=== PATIENT | female | born 1995 | race African-American/Black ===

== ENCOUNTER 2023-10-12 13:43 | Emergency (ER) | payer MEDICAID, SELFPAY ==
[2023-10-12 14:03] VITALS: BP 111/57; PULSE 90; RESP 19; TEMP 36.6; O2SAT 98; BMI 23.8
--- NOTE | 2023-10-12 15:04 | ED_ITS ---
HPI - General Adult General Chief complaint: Abdominal Pain Stated complaint: 8 mos having abd pain Time Seen by Provider: 10/12/23 14:11 Source: patient Mode of arrival: ambulatory Limitations: no limitations History of Present Illness HPI narrative: 28-year-old female A1 8 months presents to the ED for right sided lower abdominal pain, back pain, and left leg pain for the past two days. Pa karleymorgan states two days ago she had one episode of VAGINAL clear mucus discharge two days ago. patient states no vaginal bleeding, and or discharge today. Related Data Allergies Allergy/AdvReac Type Severity Reaction Status Date / Time No Known Allergies Allergy Verified 10/12/23 14:03 Review of Systems Review of Systems: Right sided lowe abdominal pain and with one episode of mucus clear vaginal discharge Yes all other systems are reviewed and are negative PMFSH Social History Social History Smoked in Last 30 Days: No Use of substances other than those prescribed or required for medical reasons: No Advance Directives: No Advance Directives Information Provided: No Patient : Yes Physical Exam ED Vital Signs: Vital Signs - 24 hr 10/12/23 14:03 Temperature 98 F Pulse Rate 90 Respiratory Rate 19 Blood Pressure 111/57 L Pulse Oximetry 98 Oxygen Delivery Method Room Air BMI result Body Mass Index 23.8 Const Orientation/consciousness: oriented to person, oriented to place, oriented to time and patient oriented x3 HENMT Head: Yes normal to inspection, Yes No palpable skull fracture present, Yes normocephalic and Yes atraumatic Eyes General: appearance normal, both eyes and all related structures Neck Neck: Yes normal visual inspection, Yes full ROM, Yes no lymphadenopathy, Yes no meningeal signs, Yes trachea midline, Yes supple, No anterior neck swelling and No tender Chest Chest palpation & inspection: normal inspection of the chest and normal palpation of entire chest wall Resp Effort & Inspection: normal respiratory effort and able to speak in complete sentences Auscultation: clear to auscultation bilaterally Cardio Jugular venous distension: no JVD Heart sounds: S1 normal heart sound present and S2 normal heart sound present GI Inspection: Yes normal to inspection and No abdominal wall ecchymosis Palpation (GI): Soft to palpation, not firm, nontender, no guarding and not rigid Other: negative for vaginal discharge or lesions. Cervix 1cm thick General: Yes no CVA tenderness Back/Spine/Pelvis Back: no CVA tenderness and No back tenderness Skin General skin exam: no rashes or lesions noted, elasticity normal and turgor normal Neuro General: oriented to person, oriented to place, oriented to time, patient oriented x3, gait normal, tone normal, moves all extremities, Normal light touch and pain sensation, no meningeal signs, no focal motor deficits and CN's II-XI intact bilaterally Extrem Other: Bilateral lower extremities negative for swelling, pitting edema,ecchymosis or calf pain. MOTOR, NEURO, AND VASCULAR EXAM IS INTACT. General: Yes normal to inspection and Yes full ROM Psych Appearance: grossly normal, well kempt and not disheveled Course Course Course Narrative: RME: 28 yold female 8 months pregnat presents to the ED for right sided lower abdominal pain and back pain. patient states one episdoe of mucus clear discharge that occured yesterday. No vaginal bleeding. 3:46 pm: [facility] Case discussed with her and she states she will Discuus with her Attendant and call us back. 3:55pm: Case accpeted by Dr. Weathers of OBGYN and to go to for monitoring. Medical Decision Making Medical Decision Making MDM Narrative: 28-year-old female presents to the ED for right-sided lower abdominal pain radiating to the back and left leg for the past 2 days. Also 2 days ago had 1 episode of clear mucus vaginal discharge. Patient denies any nausea, vomiting, vaginal bleeding, or present vaginal discharge. Patient not in any distress. Patient has no OBGYN presently in [facility]. Patient used to follow at [facility], but now lives in the area and missed her 8 months OBGYN appointment in [place]. Patient estimated due date December 09. Case discussed with OBGYN resident who discussed case with Dr. Weathers. Dr. Weathers accepted the case recommend patient be transferred to [facility] for evaluation and monitoring. heart rate 148. Differential Diagnosis Differential Diagnoses: The differential diagnosis associated with the presentation includes (Abdominal pain, labor? ) Admission/Observation Consideration of admission/observation: Escalation of care including admission/observation considered Consult Healthcare Provider Management of the patient was discussed with: Hitcher (Dr. Sidney MCCLAIN and Dr. Sarahy DIAZ [facility]) Lab Data Labs: Lab Results 10/12/23 Range/Units 15:28 COVID-19 (EVELYN) Negative (Negative) COVID-19 Clin Com See Note Independent Historian Clinical information obtained from an independent historian. History obtained from or confirmed by: Other Discharge Plan Discharge Clinical Impression: , Abdominal pain Patient Disposition: [facility] Transfer Details: TO [facility] Interventions: Acute Care Transfer Worksheet (ED) Last Done: 10/12/23 17:51 Discharge Date/Time: 10/12/23 17:53
[2023-10-12 15:47] LABS: COVID-19 Test Negative (Negative); IDNOW Serial# 152EDE1D
--- NOTE | 2023-10-12 16:19 | PC.NURSE ---
HEPLOCK #20 PLACED TO R AC. PT TOLERATED WELL.
== END 2023-10-12 17:53 | disposition short-term general hospital (02) ==
PROVIDERS: Physician Assistant; Emergency Provider Emergency Medicine
DX: O26.893 Other specified pregnancy related conditions, third trimester (principal); R10.31 Right lower quadrant pain; O99.891 Other specified diseases and conditions complicating pregnancy; M54.9 Dorsalgia, unspecified; M79.605 Pain in left leg; Z3A.00 Weeks of gestation of pregnancy not specified; Z11.52 Encounter for screening for COVID-19
CPT/HCPCS: 87635; 99285

== ENCOUNTER 2024-12-10 17:35 | Emergency (ER) | payer OTHER, SELFPAY ==
--- NOTE | ~2024-12-10 | US_ITS ---
CLINICAL HISTORY: Lower back pain, quant 105,816 LMP 10 25 2024 ,6w4d --- Additional Notes or Special Instructions: R O ectopic Exam: 1st trimester transabdominal obstetrical ultrasound. Comparison: None. Findings: Patient's last menstrual period was October 25, 2024. This gives a gestational age of 6 weeks and 4 days. Transabdominal study only was performed. Urinary bladder is minimally distended. Single intrauterine gestation is identified. Gestational sac, yolk sac, pole are present. [place]-rump length measurement gives an estimated age by ultrasound of 6 weeks and 3 days +/-1 week. cardiac activity is confirmed at 114 beats per minute. No subchorionic hemorrhage. Right ovary measures 2.0 x 1.8 x 2.3 cm in size. Right ovary is unremarkable. Left ovary measures 3.6 x 2.6 x 2.1 cm in size. Presumed corpus luteal cyst within the left ovary measures 2.2 x 2.2 x 1.8 cm in size. No free pelvic fluid. Impression: 1. Single intrauterine gestation with age by ultrasound of 6 weeks and 3 days +/-1 week with confirmed cardiac activity. 2. Likely corpus luteal cyst within the left ovary. Continued attention on follow up obstetrical ultrasound suggested. This document has been electronically signed by: Matthew Saleem MD on 12/10/2024 21:38:36
[2024-12-10 17:45] VITALS: BP 98/49; PULSE 97; RESP 12; TEMP 36.6; O2SAT 99; BMI 22.0
--- NOTE | 2024-12-10 17:46 | ED.GENADULT ---
HPI - General Adult General Chief complaint: Back Pain/Injury Stated complaint: back pain Time Seen by Provider: 12/10/24 19:12 Source: patient and other () Mode of arrival: ambulatory Limitations: language barrier (N[place]ien Creole speaking only) History of Present Illness ED Provider: Dr. Jose Manuel Jenkins HPI narrative: 29-year-old female who presents emergency department for evaluation of lower back pain, dysuria/burning urination, vaginal pruritus and missing her last menstrual period. Patient's last menstrual period was 10/25/2024. Quantitative beta-hCG is positive today at 105,081 which makes the patient [id number] has a 12 month old daughter and she had 1 miscarriage. The patient states that since giving in November of 2023 she has had chronic lower back pain however this pain in his gotten worse since the beginning of this month. She states the pain is a constant, for pain which is worse with movement. She denied abdominal pain. She denied nausea or vomiting. She states that she does have an itchiness in her vaginal area but no discharge and no vaginal bleeding. The patient states that her blood type is AB positive. She denied fever, chills, chest pain, shortness of breath, nausea, vomiting or diarrhea. Related Data Previous Rx's ?Medication ?Instructions ?Recorded acetaminophen 500 mg tablet 1,000 mg (2 x 500 mg) PO Q6H PRN 12/10/24 (Tylenol Extra Strength) fever or pain #20 tabs vits no.126-ferrous fum 1 tab PO DAILY 90 days #90 tabs 12/10/24 28 mg iron-folic acid 800 mcg tablet (Classic ) Allergies Allergy/AdvReac Type Severity Reaction Status Date / Time No Known Allergies Allergy Verified 12/10/24 17:48 Review of Systems Review of Systems: Yes all other systems are reviewed and are negative PMFSH Social History Social History Unable to assess alcohol history related to: Unknown Use of substances other than those prescribed or required for medical reasons: Unknown Advance Directives: No Advance Directives Information Provided: No Do you have a plan to hurt others: No Plan Patient : Yes Physical Exam ED Vital Signs: Vital Signs - 24 hr 12/10/24 17:45 12/10/24 19:38 12/10/24 22:28 Temperature 97.9 F 98.8 F 98.2 F Pulse Rate 97 100 86 Respiratory Rate 12 16 18 Blood Pressure 98/49 L 127/69 95/61 Pulse Oximetry 99 100 100 Oxygen Delivery Method Room Air Room Air Room Air 12/10/24 22:58 Temperature 98.2 F Pulse Rate 86 Respiratory Rate 18 Blood Pressure 95/61 Pulse Oximetry 100 Oxygen Delivery Method Room Air BMI result Body Mass Index 22.0 Vital signs were normal Exam: General: Awake, alert in no distress Head: Normocephalic, atraumatic EENT: PERRL, Lids normal, sclera normal, conjunctiva normal, nose normal , ears normal, throat without erythema or exudates Neck: Supple, no adenopathy Lung: breath sounds symmetric, no wheezing, rales or rhonchi Chest: symmetric movement, nontender Heart: regular rate and rhythm, normal S1, S2 no murmurs or rubs Abdomen: soft, non-tender, nondistended, normal bowel sounds Back: no vertebral tenderness, mild paraspinal muscle tenderness lumbar sacral area right greater than left, no spasm, no rashes or lesions noted in his area Extremities: no deformities, moves all extremities symmetrically Neuro: Awake, alert, oriented, normal speech, cranial nerves intact, moves all extremities symmetrically Psych: Pleasant, cooperative Course Course Course Narrative: RME performed by Maria Luz Edwards PA-C. Patient is a 29 year old assigned female at presenting to the emergency department with low back pain and pain with urination. Patient states that she has been having pain with urination, missed her period, and is having low back pain. Patient states that she is concerned her low back pain is from her epidural during delivery. Detailed physical exam and review of systems are deferred to the mental health clinician. Labs ordered. Patient placed back in the waiting room pending room availability and results. Medications Administered Discontinued Medications Generic Name Dose Route Start Last Admin Trade Name Freq PRN Reason Stop Dose Admin Acetaminophen 975 mg 12/10/24 19:38 12/10/24 19:44 Acetaminophen 325 Mg Tablet PO 12/10/24 19:39 975 mg ONCE STA Administration Medical Decision Making Medical Decision Making [facility] Narrative: 29-year-old female who presents emergency department for evaluation of lower back pain, dysuria/burning urination, vaginal pruritus and missing her last menstrual period. Patient's last menstrual period was 10/25/2024. Quantitative beta-hCG is positive today in the ED at 105,081 which makes the patient [id number] has a 12 month old daughter and she had 1 miscarriage. The patient states that since giving in November of 2023, she has had chronic lower back pain however this pain in his gotten worse since the beginning of this month. She states the pain is a constant, pressure-like pain which is worse with movement. She denied abdominal pain. She denied nausea or vomiting. She states that she does have an itchiness in her vaginal area but no discharge and no vaginal bleeding. The patient states that her blood type is AB positive. She denied fever, chills, chest pain, shortness of breath, nausea, vomiting or diarrhea. Vital signs were normal. Physical examination revealed no abdominal tenderness but she does have tenderness palpation of the, right greater than left. Differential diagnosis: ?Includes but is not limited to ectopic , intrauterine , urinary tract infection, pyelonephritis, gonorrhea, chlamydia, anemia, electrolyte abnormalities Course: 17:49 My interpretation patient's laboratory evaluation is as follows: Normocytic anemia with an H&H of 11.2 and 31.6. Platelet count was normal 202,000. LFTs were normal. Quantitative beta-hCG was elevated 105,816. COVID-19, influenza and RSV tests were negative. Urinalysis is pending. Urine GC and chlamydia tests are pending. Based on the patient's last menstrual period she is 6 weeks and 4 days . Given her lower back pain I am concerned that she may have an ectopic therefore I ordered ultrasound evaluation. The patient was given Tylenol 975 mg orally for her pain. 22:30 Ultrasound revealed a single intrauterine which correlates with the patient's last menstrual period, gestational age is estimated at 6 weeks and 3 days on ultrasound. PAULINA is 08/01/2025. Patient states that her pain resolved after getting the oral Tylenol. Patient states she gets her OBGYN care at [facility]. The patient was prescribed vitamins and extra-strength Tylenol as needed for her pain. She was given printed instructions on and advised to contact [facility] to establish care for this . Admission/Observation Consideration of admission/observation: Escalation of care including admission/observation considered Lab Data MDM Lab Attestation statement: I reviewed the patient's lab results. 12/10/24 18:20 12/10/24 18:20 Labs: Lab Results 12/10/24 12/10/24 Range/Units 18:20 19:46 WBC 8.3 (4.8-10.8) X10*3/uL RBC 3.48 L (4.20-5.50) X10*6/uL Hgb 11.2 L (12.0-16.0) g/dl Hct 31.6 L (37.0-47.0) % MCV 90.8 (80.0-98.0) fL MCH 32.2 (27.0-33.0) pg MCHC 35.4 H (31.0-35.0) g/dl RDW 11.4 (11.0-16.0) % Plt Count 202 (160-400) X10*3/uL MPV 10.3 (9.4-12.3) fL Immature Gran % (Auto) 0.4 (0.0-0.4) % Neut % (Auto) 59.5 (45-73) % Lymph % (Auto) 32.8 (20-40) % [place] % (Auto) 6.0 (2-11) % Eos % (Auto) 0.8 (0-4) % Baso % (Auto) 0.5 (0-2) % Lymph # (Auto) 2.7 (1.2-4.9) X10*3/uL [place] # (Auto) 0.5 (0.1-1.2) X10*3/uL Eos # (Auto) 0.1 (0.0-0.4) X10*3/uL Baso # (Auto) 0.0 (0.0-0.2) X10*3/uL Abs Immat Gran (auto) 0.03 (0.00-0.03) X10*3/uL Absolute Neuts (auto) 5.0 (2.0-8.3) x10*3/uL Absolute Nucleated RBC 0.000 (0.0-0.012) X10*3/uL Nucleated RBC % (auto) 0.0 (0.0-0.2) /100WBC PT 13.9 H (10.9-12.4) SEC INR 1.2 H (0.9-1.1) Sodium 139 (135-145) mmol/L Potassium 4.2 (3.3-5.1) mmol/L Chloride 111 H (96-108) mmol/L Carbon Dioxide 22 (22-29) mmol/L Anion Gap 10 L (12-20) BUN 7 L (9-16) mg/dL Creatinine 0.67 (0.5-1.4) mg/dL Estim Creat Clear Calc 99.7 Estimated GFR > 60 Random Glucose 102 (60-115) mg/dL Calcium 8.8 (8.4-10.2) mg/dL Magnesium 2.0 (1.6-2.6) mg/dL Total Bilirubin 0.7 (0.0-1.0) mg/dL AST 21 (5-31) U/L ALT 22 (0-31) U/L Alkaline Phosphatase 32 L (39-117) U/L Total Protein 6.6 (6.5-8.0) g/dL Albumin 3.9 (3.5-5.0) g/dL Beta HCG, Quant [id number] mIU/mL Urine Color Yellow Urine Appearance Clear Urine pH 6.5 (5.0-9.0) Ur Specific [place] 1.025 (1.005-1.025) Urine Protein Negative (Neg-Trace) mg/dL Urine Glucose (UA) Negative (Negative) mg/dL Urine Ketones Trace (Negative) mg/dL Urine Blood Negative (Negative) Urine Nitrite Negative (Negative) Ur Leukocyte Esterase Trace H (Negative) Urine RBC 0-2 (0-2) /HPF Urine WBC 0-5 (0-5) /HPF Ur Squamous Epith Cells 6-10 (0-2) /HPF Urine Bacteria Trace (None Seen) Hyaline Casts 0-2 (0-2) /LPF Influenza Type A (PCR) NEGATIVE (Negative) Influenza Type B (PCR) NEGATIVE (Negative) RSV RNA Qual (PCR) NEGATIVE (Negative) SARS-CoV-2 RNA (RT-PCR) NEGATIVE (Negative) Radiology Impression Discussion of test interpretation with radiology: I have reviewed the radiologist's reading. Radiologist Impression: Exam: 1st trimester transabdominal obstetrical ultrasound. Comparison: None. Findings: Patient's last menstrual period was October 25, 2024. This gives a gestational age of 6 weeks and 4 days. Transabdominal study only was performed. Urinary bladder is minimally distended. Single intrauterine gestation is identified. Gestational sac, yolk sac, pole are present. [place]-rump length measurement gives an estimated age by ultrasound of 6 weeks and 3 days +/-1 week. cardiac activity is confirmed at 114 beats per minute. No subchorionic hemorrhage. Right ovary measures 2.0 x 1.8 x 2.3 cm in size. Right ovary is unremarkable. Left ovary measures 3.6 x 2.6 x 2.1 cm in size. Presumed corpus luteal cyst within the left ovary measures 2.2 x 2.2 x 1.8 cm in size. No free pelvic fluid. Impression: 1. Single intrauterine gestation with age by ultrasound of 6 weeks and 3 days +/-1 week with confirmed cardiac activity. 2. Likely corpus luteal cyst within the left ovary. Continued attention on follow up obstetrical ultrasound suggested. This document has been electronically signed by: Matthew Saleem MD on 12/10/2024 21:38:36 Independent Historian Clinical information obtained from an independent historian. History obtained from or confirmed by: Other (Spouse) Prescription Management I considered prescription management with: Other ( vitamins, extra-strength Tylenol) Discharge Plan Discharge Clinical Impression: First trimester , Intrauterine , Back pain Patient Disposition: Home, Self-Care Instructions: (ED) Additional Instructions: Your test was positive Your ultrasound revealed 1 baby (single intrauterine ). Based on your dates and on the ultrasound, you are 6 weeks and 3 days . Estimated delivery date is 08/01/2025. Take the vitamins as prescribed You can take extra-strength Tylenol 500 mg pills, 2 pills every 6 hours as needed for pain Please return to the emergency department if your symptoms get worse or if you develop any symptoms that are concerning to you. You need to follow-up with your OBGYN doctor at [facility] to get care. Please return to the emergency department if your symptoms get worse or if you develop any symptoms that are concerning to you. Prescriptions: New Classic 28 mg iron- 800 mcg tablet 1 tab PO DAILY 90 Days Qty: 90 3RF acetaminophen [Tylenol Extra Strength] 500 mg tablet 1,000 mg PO Q6H PRN (Reason: fever or pain) Qty: 20 0RF Interventions: ED Discharge Assessment Last Done: 12/10/24 22:58 Discharge Date/Time: 12/10/24 22:58 Print Language: [place]
[2024-12-10 18:25] LABS: MANUAL DIFF FLAG NO
[2024-12-10 18:26] LABS: Basophils Percent Auto 0.5 % (0-2); Eosinophils Absolute Auto 0.1 X10*3/uL (0.0-0.4); Eosinophils Percent Auto 0.8 % (0-4); Hematocrit 31.6 % (37.0-47.0); Hemoglobin 11.2 g/dl (12.0-16.0); Imm Gran Abs Auto 0.03 X10*3/uL (0.00-0.03); Imm Gran Pct Auto 0.4 % (0.0-0.4); Lymphocytes Absolute Auto 2.7 X10*3/uL (1.2-4.9); Lymphocytes Percent Auto 32.8 % (20-40); Mean Corpuscular HGB Conc 35.4 g/dl (31.0-35.0); Mean Corpuscular Hemoglobin 32.2 pg (27.0-33.0); Mean Corpuscular Volume 90.8 fL (80.0-98.0); Mean Platelet Volume 10.3 fL (9.4-12.3); Monocytes Absolute Auto 0.5 X10*3/uL (0.1-1.2); Neutrophils Percent Auto 59.5 % (45-73); Platelet Count 202 X10*3/uL (160-400); Red Blood Count 3.48 X10*6/uL (4.20-5.50); Red Cell Distribution Width 11.4 % (11.0-16.0); White Blood Count 8.3 X10*3/uL (4.8-10.8)
[2024-12-10 18:32] LABS: INTERNATIONAL NORM RATIO 1.2 (0.9-1.1); Prothrombin Time 13.9 SEC (10.9-12.4)
[2024-12-10 18:46] LABS: Alanine Aminotransferase 22 U/L (0-31); Albumin Level 3.9 g/dL (3.5-5.0); Alkaline Phosphatase 32 U/L (39-117); Anion Gap 10 (12-20); Aspartate Amino Transferase 21 U/L (5-31); Bilirubin Total 0.7 mg/dL (0.0-1.0); Blood Urea Nitrogen 7 mg/dL (9-16); Calcium 8.8 mg/dL (8.4-10.2); Carbon Dioxide 22 mmol/L (22-29); Chloride 111 mmol/L (96-108); Creatinine Clr Calc Pharmacy 99.7; Estimated Glomerular Filt Rate > 60; Glucose Random 102 mg/dL (60-115); Potassium 4.2 mmol/L (3.3-5.1); Sodium 139 mmol/L (135-145); Total Protein 6.6 g/dL (6.5-8.0)
[2024-12-10 19:02] LABS: Influenza A PCR NEGATIVE (Negative); Influenza B PCR NEGATIVE (Negative); Resp Syncy Virus RNA Qual PCR NEGATIVE (Negative); SARS COV2 PCR INHOUSE NEGATIVE (Negative)
[2024-12-10 19:12] LABS: HCG Quantitative 105816 mIU/mL
[2024-12-10 19:38] VITALS: BP 127/69; PULSE 100; RESP 16; TEMP 37.1; O2SAT 100
[2024-12-10] MEDS: Acetaminophen 325 MG TABLET 975 MG PO (19:44)
[2024-12-10 19:53] LABS: Appearance Urine Clear; Color Urine Yellow; Glucose Urine UA Negative (Negative); Leukocyte Esterase Urine Trace (Negative); Nitrite Urine Negative (Negative); PH 6.5 (5.0-9.0); Specific Gravity - Urine 1.025 (1.005-1.025); UMIC TRIGGER UACC YES; Urine Blood Negative (Negative); Urine Ketones Trace mg/dL (Negative); Urine Protein Negative (Neg-Trace)
[2024-12-10 19:58] LABS: Bacteria Urine Trace (None Seen); Hyaline Casts Urine 0-2 /LPF (0-2); RBC Urine 0-2 /HPF (0-2); WBC Urine 0-5 /HPF (0-5)
[2024-12-10 22:28] VITALS: BP 95/61; PULSE 86; RESP 18; TEMP 36.8; O2SAT 100
[2024-12-10 22:58] VITALS: BP 95/61; PULSE 86; RESP 18; TEMP 36.8; O2SAT 100
== END 2024-12-10 22:58 | disposition home or self-care (01) ==
PROVIDERS: Physician Assistant Medical; Emergency Provider Emergency Medicine Emergency Medical Services; PCP Internal Medicine
DX: O26.91 Pregnancy related conditions, unspecified, first trimester (principal); Z3A.01 Less than 8 weeks gestation of pregnancy; M54.50 Low back pain, unspecified; R30.0 Dysuria; L29.9 Pruritus, unspecified; Z03.818 Encounter for observation for suspected exposure to other biological agents ruled out; Z79.899 Other long term (current) drug therapy
CPT/HCPCS: 0241U; 76801; 80053; 81001; 83735; 84702; 85025; 85610; 99284

== ENCOUNTER → 2024-12-10 19:38 | Outpatient (BNV) | payer MEDICAID, SELFPAY | PROVIDERS: Emergency Provider Emergency Medicine Emergency Medical Services; Visit Provider Radiology Diagnostic Radiology | DX: O26.891 Other specified pregnancy related conditions, first trimester (principal); M54.50 Low back pain, unspecified; Z3A.01 Less than 8 weeks gestation of pregnancy | CPT/HCPCS: 76801 ==

== ENCOUNTER 2025-01-16 21:02 | Emergency (ER) | payer OTHER, SELFPAY ==
--- NOTE | ~2025-01-16 | US_ITS ---
CLINICAL HISTORY: demise??? US OB 1st trimester transabdominal Comparison: US - US OB <= 14 WEEKS FETUS - 12/10/24 20:41 EDT Findings: Single intrauterine . CRL: 54 mm. EGA: 12 weeks, 1 day. PAULINA: July 31, 2025. Previously established gestational age: 12 weeks 0 days. Normal yolk sac. Cardiac activity: 161 bpm. No subchorionic bleed. Maternal ovaries not identified. No ascites. IMPRESSION: Single intrauterine estimated 12 weeks, 1 day gestational age by today's ultrasound criteria. This document has been electronically signed by: Xuan Martínez MD on 01/17/2025 01:07:28
[2025-01-16 21:16] VITALS: BP 90/54; PULSE 86; RESP 16; TEMP 36.9; O2SAT 97; BMI 18.7
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
[2025-01-16 23:22] VITALS: BP 105/62; PULSE 70; RESP 16; TEMP 36.8; O2SAT 100
[2025-01-16 23:43] LABS: Basophils Percent Auto 0.4 % (0-2); Eosinophils Absolute Auto 0.1 X10*3/uL (0.0-0.4); Eosinophils Percent Auto 0.7 % (0-4); Hematocrit 29.1 % (37.0-47.0); Hemoglobin 10.7 g/dl (12.0-16.0); Imm Gran Abs Auto 0.03 X10*3/uL (0.00-0.03); Imm Gran Pct Auto 0.4 % (0.0-0.4); Lymphocytes Absolute Auto 3.2 X10*3/uL (1.2-4.9); Lymphocytes Percent Auto 37.7 % (20-40); MANUAL DIFF FLAG NO; Mean Corpuscular HGB Conc 36.8 g/dl (31.0-35.0); Mean Corpuscular Hemoglobin 32.3 pg (27.0-33.0); Mean Corpuscular Volume 87.9 fL (80.0-98.0); Mean Platelet Volume 10.3 fL (9.4-12.3); Monocytes Absolute Auto 0.6 X10*3/uL (0.1-1.2); Monocytes Percent Auto 7.7 % (2-11); Neutrophils Absolute Auto 4.5 x10*3/uL (2.0-8.3); Neutrophils Percent Auto 53.1 % (45-73); Platelet Count 188 X10*3/uL (160-400); Red Blood Count 3.31 X10*6/uL (4.20-5.50); Red Cell Distribution Width 11.4 % (11.0-16.0); White Blood Count 8.4 X10*3/uL (4.8-10.8)
[2025-01-16 23:46] LABS: Appearance Urine Clear; Color Urine Yellow; Glucose Urine UA Negative (Negative); Leukocyte Esterase Urine Negative (Negative); Nitrite Urine Negative (Negative); PH 6.5 (5.0-9.0); Urine Blood Negative (Negative); Urine Ketones 15 mg/dL (Negative); Urine Protein Negative (Neg-Trace)
[2025-01-17 00:03] LABS: Alanine Aminotransferase 18 U/L (0-31); Albumin Level 3.7 g/dL (3.5-5.0); Alkaline Phosphatase 24 U/L (39-117); Anion Gap 11 (12-20); Aspartate Amino Transferase 22 U/L (5-31); Bilirubin Total 0.5 mg/dL (0.0-1.0); Blood Urea Nitrogen 8 mg/dL (9-16); Calcium 8.6 mg/dL (8.4-10.2); Carbon Dioxide 22 mmol/L (22-29); Chloride 108 mmol/L (96-108); Creatinine Clr Calc Pharmacy 136.2; Estimated Glomerular Filt Rate > 60; Glucose Random 77 mg/dL (60-115); Lipase 18 U/L (8-78); Potassium 3.6 mmol/L (3.3-5.1); Sodium 137 mmol/L (135-145); Total Protein 6.3 g/dL (6.5-8.0)
[2025-01-17 02:45] VITALS: BP 105/62; PULSE 70; RESP 16; TEMP 36.8; O2SAT 100
== END 2025-01-17 02:46 | disposition home or self-care (01) ==
PROVIDERS: Emergency Provider Emergency Medicine; PCP Internal Medicine
DX: O26.891 Other specified pregnancy related conditions, first trimester (principal); R10.2 Pelvic and perineal pain; M54.50 Low back pain, unspecified; Z3A.12 12 weeks gestation of pregnancy
CPT/HCPCS: 36415; 76801; 80053; 81003; 83690; 84702; 85025; 99284

== ENCOUNTER → 2025-01-16 23:28 | Outpatient (BNV) | payer OTHER, SELFPAY | PROVIDERS: Emergency Provider Emergency Medicine; PCP Internal Medicine; Visit Provider Radiology Diagnostic Radiology | DX: O26.891 Other specified pregnancy related conditions, first trimester (principal); Z3A.12 12 weeks gestation of pregnancy | CPT/HCPCS: 76801; 76817 ==